=== PATIENT | male | born 1970 | race Caucasian/White ===

== ENCOUNTER 2025-01-13 19:52 | Emergency (ER) | payer OTHER, SELFPAY ==
[2025-01-13 19:56] VITALS: BP 125/82
[2025-01-13 21:34] VITALS: BMI 24.7
--- NOTE | 2025-01-13 22:45 | ED.GENMED ---
History of Present Illness
General
Chief Complaint: Catheter/Tube Problem
Source: patient
Exam Limitations: none
Time Seen by Provider: 01/13/25 21:59
Nursing documentation reviewed up to this point in time: agreed with
History of Present Illness
History of Present Illness:
54-year-old male with a chronic indwelling Becker catheter presents to the emergency department with blocked catheter. Patient has not been urinating normally for the last few hours. He follows with urology at [facility]. Denies fever, chills,
nausea or vomiting.
Phy Exam
General Physical Exam
General Presentation: well appearing and mild distress
General age: appears stated age
General Skin: warm and dry
General Habitus: normal
General Mental: alert
General Hydration: appears well hydrated
General Chronic Disability: urinary catheter (Suprapubic)
ENT Exam
ENT Exam: EOMI and neck supple
Eye Exam
Eye Exam: PERRL and EOMI
Pulmonary Exam
Pulmonary Exam: no respiratory distress and no cough
Neurological Exam
Neurological Exam: alert and other (Paraplegia)
Musculoskeletal Exam
Musculoskeletal Exam: neuro vasc intact
Skin Exam
Skin Exam: normal color and warm/dry
Psychiatric Exam
Psychiatric Exam: normal mood/affect
Course
Vital Signs
Initial and Last Documented VS:
Initial Vital Signs
Temp Pulse Resp BP Pulse Ox
97.8 F 101 18 125/82 98
01/13/25 19:56 01/13/25 19:56 01/13/25 19:56 01/13/25 19:56 01/13/25 19:56
Last Documented Vital Signs
Temp Pulse Resp BP Pulse Ox
97.8 F 101 18 125/82 98
01/13/25 19:56 01/13/25 19:56 01/13/25 19:56 01/13/25 19:56 01/13/25 22:48
*Pulse Oximetry
SaO2: 98
Oxygen Mode of Delivery: Room air
Patient hypoxic: no
*Critical Care Note
Total Time (30-74mins, 75-104mins- exclusive of procedures): Not Applicable
ED Attending Note
-
Portions of this chart may have been created with voice recognition software.� Occasional wrong word or��sound alike� substitutions may have occurred due to the inherent limitations of voice recognition software.
Discharge Plan
Departure
Patient Disposition: Home (Routine Discharge)
Date of Disposition: 01/13/25
Time of Disposition: 22:42
Patient with high blood pressure during this ER visit?: Yes
Condition: Good
Discharge Problem:
Complication, suprapubic catheter obstruction
Instructions: Suprapubic catheter placement, How to care for a suprapubic catheter, BLOOD PRESSURE
Activity Restrictions/Additional Instructions:
Your 20 Occitan suprapubic catheter was changed out for a 22 Occitan suprapubic catheter. Please follow-up with your urologist at [facility]
Thank You for choosing [facility].
It was a pleasure meeting you and taking part in your care. We hope for your continued healing and wellness.
Please read discharge instructions in their entirety. However, they are for general education and may not describe your exact diagnosis at discharge. Information on your ER visit and medical conditions were discussed with you along with appropriate
follow up information...
If indicated, please take your medications as instructed and indicated on discharge paperwork.
Please schedule a follow up appointment as directed. Call to schedule an appointment
Please return to the emergency department with ANY change in, persisting, or worsening of symptoms. If any of your symptoms do not improve, or persist, or become more severe within 6-12 hours, please return to the emergency department for further
care.
Please return to the emergency department if you develop a headache, neck pain/stiffness, fever greater than 100.4F, chest pain, shortness of breath, persistent nausea, vomiting, slurred speech, difficulty walking, numbness/tingling, weakness, signs
of infection or any other symptoms that are worrisome to you.
If you have any questions or concerns please do not hesitate to call the Hospital at or E-mail me directly at [email or web address]
Interventions
Interventions:
*Risk Screen - Suicide Last Done: 01/13/25 19:56
*General Assessment Last Done: 01/13/25 21:34
*Neglect/Abuse Screening Last Done: 01/13/25 21:34
*ED- Fall Risk Assessment Last Done: 01/13/25 21:34
*ED COVID-19 Vaccine History Last Done: 01/13/25 21:34
DZ-Cqkuoc-Onvdzfrcqv Assessment Last Done: 01/13/25 21:34
ED-Male Genitourinary Assessment Last Done: 01/13/25 21:34
Discharge Date and Time
Print Language: BELARUSIAN
== END 2025-01-13 23:24 | disposition home or self-care (01) ==
LOC: EMR 19:52
PROVIDERS: EMERGENCY PHYSICIAN Student in an Organized Health Care Education/Training Program; FAMILY PHYSICIAN Family Medicine
DX: T83.091A Other mechanical complication of indwelling urethral catheter, initial encounter (principal); Y73.2 Prosthetic and other implants, materials and accessory gastroenterology and urology devices associated with adverse incidents; G82.20 Paraplegia, unspecified
CPT/HCPCS: 99283; 51702